=== PATIENT | male | born 1985 | race African-American/Black ===

== ENCOUNTER 2021-03-11 19:11 | Emergency (ER) | payer SELFPAY ==
[~2021-03-11] VITALS: Ht 180.3 cm; Wt 78.0 kg
[2021-03-11] MEDS ORDERED: DOXYCYCLINE HY100 MG PO (20:09)
== END 2021-03-11 20:25 | disposition home or self-care (01) ==
LOC: ED 19:11
DX: L02.31 Cutaneous abscess of buttock (principal); F17.200 Nicotine dependence, unspecified, uncomplicated
CPT/HCPCS: 10060; 99282-25

== ENCOUNTER 2021-11-20 11:07 | Emergency (ER) | payer SELFPAY ==
[~2021-11-20] VITALS: Ht 180.3 cm; Wt 78.0 kg
[~2021-11-20 11:07] MED LIST: DOXYCYCLINE HY100 MG PO
[2021-11-20] MEDS ORDERED: HYDROCODON-ACE1 EA11 PO (14:36)
== END 2021-11-20 14:49 | disposition home or self-care (01) ==
LOC: ED 11:07
DX: S69.92XA Unspecified injury of left wrist, hand and finger(s), initial encounter (principal); S69.91XA Unspecified injury of right wrist, hand and finger(s), initial encounter; X31.XXXA Exposure to excessive natural cold, initial encounter; F17.200 Nicotine dependence, unspecified, uncomplicated
CPT/HCPCS: 99283; A9270

== ENCOUNTER 2023-07-01 21:15 | Emergency (ER) | payer OTHER | END 2023-07-01 23:12 | disposition home or self-care (01) | LOC: ED 21:15 | DX: K04.7 Periapical abscess without sinus (principal); F17.200 Nicotine dependence, unspecified, uncomplicated; Z79.899 Other long term (current) drug therapy ==

== ENCOUNTER 2024-10-20 10:52 | Emergency (ER) | payer OTHER ==
[~2024-10-20] VITALS: Ht 180.3 cm; Wt 82.2 kg
[~2024-10-20 10:52] MED LIST changes: +AMOX TR-K CLV1 EAC1 PO; +BUSPIRONE HCL5 MG PO; +HYDROCODON-ACE1 EA11 PO; +HYDROXYZINE HCL10 MG PO; +ONDANSETRON ODT8 MG PO; +PRAZOSIN HCL1 MG PO; +PRAZOSIN HCL2 MG PO; +PREGABALIN25 MG PO; +SERTRALINE HCL25 MG PO; +TRAZODONE HCL50 MG PO; +VENLAFAXINE HCL75 M2 PO
[2024-10-20] MEDS ORDERED: CLONIDINE HCL0.2 MG PO (11:07)
[2024-10-20 11:13] LABS: BASOPHILS 0.8 % (0-2); HEMATOCRIT 43.1 % (35.0-50.0); HEMOGLOBIN 14.6 g/dL (12.0-18.0); MCHC 33.8 g/dl (30-36); MCV 88.8 fl (81-99); NEUTROPHILS 61.2 % (39-80); PLATELET COUNT 311 K/uL (140-440); RBC 4.85 M/ul (4.3-5.7); RDW 14.3 (10.5-15.0)
[2024-10-20] MEDS ORDERED: ondansetron HCL 4 MG/2 ML VIAL IV ONE (11:15)
[2024-10-20 11:25] LABS: ALBUMIN/GLOBULIN RATIO 0.91 (1.1-2.4); ANION GAP 13.6 (7-21); BILIRUBIN, TOTAL 0.6 ng/dL (0.2-1.0); BUN/CREATININE RATIO 10.68 (6.0-28.6); CALCIUM 9.1 mg/dL (8.5-10.1); CREATININE, SERUM 1.31 mg/dL (0.70-1.30); POTASSIUM 3.6 mmol/L (3.5-5.1); PROTEIN, TOTAL 8.4 g/dL (6.4-8.2)
[2024-10-20 11:57] VITALS: BP 141/93
[2024-10-20] MEDS ORDERED: PEPCID20 MG PO (12:00)
== END 2024-10-20 12:05 ==
LOC: ED 10:52
PROVIDERS: Emergency Medicine
DX: R10.13 Epigastric pain (principal); F17.200 Nicotine dependence, unspecified, uncomplicated
CPT/HCPCS: 80053; 83690; 85025; 96374; 99284-25; J2405

== ENCOUNTER 2025-02-10 16:29 | Emergency (ER) | payer OTHER ==
[~2025-02-10] VITALS: Ht 180.3 cm; Wt 93.7 kg
[~2025-02-10 16:29] MED LIST changes: +CLONIDINE HCL0.2 MG PO; +PEPCID20 MG PO
[2025-02-10] MEDS ORDERED: DOXYCYCLINE HYCLATE 100 MG HOME.PACK PO ONE (20:15)
[2025-02-10 20:25] VITALS: BP 141/92
== END 2025-02-10 20:24 | disposition home or self-care (01) ==
LOC: ED 16:29
DX: L72.3 Sebaceous cyst (principal); F43.10 Post-traumatic stress disorder, unspecified; J45.909 Unspecified asthma, uncomplicated; F17.200 Nicotine dependence, unspecified, uncomplicated; Z79.899 Other long term (current) drug therapy
CPT/HCPCS: 85025; 99282; A9270